=== PATIENT | female | born 1960 | race Caucasian/White ===

== ENCOUNTER 2016-09-11 23:24 | Emergency (ER) | payer MEDICAID ==
[~2016-09-11] VITALS: Ht 157.5 cm; Wt 72.7 kg
[~2016-09-11 23:24] MED LIST: NOCURR
[2016-09-12] MEDS ORDERED: ACETAMINOPHEN 500 MG TABLET PO ONE (02:15)
[2016-09-12 05:28] VITALS: BP 132/69
== END 2016-09-12 05:32 | disposition home or self-care (01) ==
LOC: EMS 23:25
DX: S02.40DA Maxillary fracture, left side, initial encounter for closed fracture (principal); S02.82XA Fracture of other specified skull and facial bones, left side, initial encounter for closed fracture; Z88.0 Allergy status to penicillin; Z91.030 Bee allergy status; Y04.2XXA Assault by strike against or bumped into by another person, initial encounter; Y93.89 Activity, other specified; Y92.89 Other specified places as the place of occurrence of the external cause; Y99.8 Other external cause status
CPT/HCPCS: 70450; 70486; 99284

== ENCOUNTER 2017-10-07 11:37 | Emergency (ER) | payer MEDICAID ==
[~2017-10-07] VITALS: Ht 157.5 cm; Wt 68.2 kg
[2017-10-07] MEDS ORDERED: CYCL10 PO (11:44)
[2017-10-07] MEDS ORDERED: LIDOCAINE HCL/PF 1% 5 ML VIAL INJ ONE (13:15)
[2017-10-07] MEDS ORDERED: BACITRACIN 0.9 GM PACKET OINTMENT TP ONE (14:45)
[2017-10-07 15:12] VITALS: BP 128/70
== END 2017-10-07 15:44 | disposition home or self-care (01) ==
LOC: EMS 11:38
DX: S61.011A Laceration without foreign body of right thumb without damage to nail, initial encounter (principal); Z88.0 Allergy status to penicillin; W25.XXXA Contact with sharp glass, initial encounter; Y93.89 Activity, other specified; Y92.89 Other specified places as the place of occurrence of the external cause; Y99.8 Other external cause status
CPT/HCPCS: 12002; 99283; J3490

== ENCOUNTER 2018-01-20 14:16 | Emergency (ER) | payer MEDICAID ==
[~2018-01-20] VITALS: Ht 157.5 cm; Wt 68.2 kg
[~2018-01-20 14:16] MED LIST changes: +CYCL10 PO; -NOCURR
[2018-01-20] MEDS ORDERED: D-ME118S13 PO (14:29)
[2018-01-20 15:18] VITALS: BP 118/75
[2018-01-20] MEDS ORDERED: LEVALBUTEROL HCL 0.63 MG/3 ML NEB SOLUTION NEB ONE (15:45)
== END 2018-01-20 16:18 | disposition home or self-care (01) ==
LOC: EMS 14:17
DX: J40 Bronchitis, not specified as acute or chronic (principal); Z88.0 Allergy status to penicillin; Z91.030 Bee allergy status
CPT/HCPCS: 71046; 94640; 99284; Z7610